=== PATIENT | female | born 1980 | race Caucasian/White ===

== ENCOUNTER 2016-10-07 17:48 | Emergency (ER) | payer OTHER ==
[~2016-10-07] VITALS: Ht 167.6 cm; Wt 111.1 kg
[2016-10-07 19:20] LABS: BASO # 0.1 x10^3/uL (0.0-0.2); BASO % 1 % (0-3); EOS % 1 % (0-3); HEMATOCRIT 39.3 % (36.0-47.0); HEMOGLOBIN 12.8 g/dL (12.0-15.5); LYMPH # 2.9 x10^3/uL (1.0-4.8); LYMPH % 28 % (24-48); MEAN CORPUSCULAR HEMOGLOBIN 28 pg (25-35); MEAN CORPUSCULAR HGB CONC 32 g/dL (31-37); MEAN CORPUSCULAR VOLUME 85 fL (79-100); MONO % 5 % (0-9); NEUT % 65 % (31-73); PLATELET COUNT 251 x10^3/uL (140-400); RED BLOOD COUNT 4.61 x10^6/uL (3.50-5.40); RED CELL DISTRIBUTION WIDTH 16.2 % (11.5-14.5); WHITE BLOOD COUNT 10.2 x10^3/uL (4.0-11.0)
[2016-10-07 19:26] LABS: BILIRUBIN,URINE NEGATIVE (NEG); GLUCOSE,URINE NEGATIVE (NEG); NITRITE,URINE NEGATIVE (NEG); PROTEIN,URINE NEGATIVE (NEG-TRACE); UROBILINOGEN,URINE 0.2 mg/dL (0.2 mg/dL)
[2016-10-07 19:26] LABS: CALCIUM 8.9 mg/dL (8.5-10.1); CREATININE 0.9 mg/dL (0.6-1.0); GFR 71.7; POTASSIUM 4.1 mmol/L (3.5-5.1)
[2016-10-07 19:29] LABS: INR 1.5 (0.8-1.1); PROTHROMBIN TIME PATIENT 16.8 SEC (11.7-14.0)
[2016-10-07 19:32] LABS: ALBUMIN 3.3 g/dL (3.4-5.0); ALBUMIN/GLOBULIN RATIO 0.8 (1.0-1.7); TOTAL BILIRUBIN 0.3 mg/dL (0.2-1.0); TOTAL PROTEIN 7.3 g/dL (6.4-8.2)
[2016-10-07 19:41] LABS: BACTERIA,URINE FEW /HPF (0-FEW); RBC,URINE 0 /HPF (0-2); SQUAMOUS EPITHELIAL CELL,UR MOD /LPF
[2016-10-07 20:13] LABS: NEG OBC UR NEG; POS OBC UR POS
[2016-10-07] MEDS ORDERED: IOHEXOL 350 MG/ML 100ML VIAL. IV ONE (20:15)
--- NOTE | 2016-10-07 20:19 | RAD ---
PROCEDURE Right lower extremity venous duplex ultrasound. HISTORY Right groin pain. Recent shoulder surgery. History of DVT/clotting disorder. TECHNIQUE Grayscale, color flow, and spectral waveform analysis was performed. COMPARISON None. FINDINGS All visualized vein segments are compressible with normal phasicity of waveform and augmentation. No thrombus on grayscale or color imaging is apparent. IMPRESSION Negative for deep vein thrombosis in the right lower extremity. Electronically signed by: Greg Braun MD (Oct 07, 2016 20:18:04)
[2016-10-07 20:22] VITALS: BP 130/83
[2016-10-07] MEDS ORDERED: IOHEXOL 300 MG/ML 75 ML VIAL IV ONE (20:30)
[2016-10-07] MEDS ORDERED: FENTANYL PF 100 MCG/2 ML VIAL. IV PRN (20:30)
[2016-10-07] MEDS ORDERED: CONTRAST GIVEN MC PRN (20:30)
--- NOTE | 2016-10-07 21:29 | RAD ---
PROCEDURE CT angiogram chest. HISTORY Subtherapeutic INR. Recent surgery. History of pulmonary embolism. TECHNIQUE Axial images and coronal and sagittal maximum intensity projection re-formatted images are provided. 75 milliliters of intravenous Omnipaque 300 was administered without complication. One or more of the following individualized dose reduction techniques were utilized for this exam: 1. Automated exposure control. 2. Adjustment of the mA and/or kV according to patient's size. 3. Use of iterative reconstruction technique. COMPARISON February 18, 2007. FINDINGS The contrast bolus is satisfactory. There is no filling defect to suggest pulmonary embolism. There is no aortic aneurysm or dissection. Heart is not enlarged. There is no hilar or mediastinal adenopathy. Central airways are patent. There is no pleural effusion. There is dependent atelectasis. There is no consolidation. There is fatty infiltration of the liver. Gallbladder is absent. There are degenerative changes in the spine. IMPRESSION Negative for pulmonary embolism. Electronically signed by: Greg Braun MD (Oct 07, 2016 21:28:30)
--- NOTE | 2016-10-07 21:50 | ED.ADGEN ---
Past Medical History Past Medical History: DVT, High Cholesterol, Other Additional Past Medical Histor: PE Past Surgical History: Other Additional Past Surgical Histo: L upper arm/scapular area lesions removed Alcohol Use: Occasionally Drug Use: None Adult General Chief Complaint Chief Complaint: LOWER EXT PAIN HPI HPI Patient is a 36 year old woman, history of protein C deficiency, MTHFR mutation , and a who is on chronic anticoagulation, with history of bilateral PEs and DVTs, with a IVC filter that was removed, who presents emergency Department with complaint of right lower extremity pain with concern for recurrent DVT. Patient that she is also feeling short of breath, and anxious. She is a history of anxiety. She states that she was taken off of her Coumadin temporarily for surgical removal of "lesions", that she had on her upper left arm and back at [facility] last week. She states she is currently on Coumadin and Lovenox transitioning back to Lovenox. Patient states that she "may have been weight" on some of her injections, but has been essentially compliant with her regimen. She states that she woke up this morning and was having excruciating pain in her right groin and the back of her leg, now radiating down into her right calf, and is concerned that she is a recurrent DVT. She denies any injuries, denies any nausea or vomiting, denies any focal weakness numbness or tingling, states that she has become more anxious, and is experiencing some shortness of breath as well. Heart rate is in the 80s to low 100s, oxygen saturation is 99% on room air , respiratory rate is unlabored. Review of Systems Review of Systems Constitutional: Denies fever or chills. [] Eyes: Denies change in visual acuity. [] HENT: Denies nasal congestion or sore throat. [] Respiratory: Denies cough, complaining of some shortness of breath and anxiety. ] Cardiovascular: Chest tightness, no edema. GI: Denies abdominal pain, nausea, vomiting, bloody stools or diarrhea. [] : Denies dysuria. [] Musculoskeletal: Denies back pain, pain in the right lower extremity. Integument: Denies rash. [] Neurologic: Denies headache, focal weakness or sensory changes. [] Endocrine: Denies polyuria or polydipsia. [] Lymphatic: Denies swollen glands. [] Psychiatric: Denies depression or anxiety. [] Current Medications Current Medications Current Medications Medications (Trade) Dose Ordered Sig/Toro Start Time Stop Time Status Last Admin Dose Admin Diazepam (Valium) 5 mg 1X ONCE 10/07/16 22:30 10/07/16 22:31 DC Fentanyl Citrate (Fentanyl 2ml Vial) 50 mcg PRN Q15MIN PRN 10/07/16 20:30 10/08/16 20:29 10/07/16 20:38 50 MCG Info (Do NOT chart on this entry -- for MONITORING) 1 each PRN DAILY PRN 10/07/16 20:30 10/09/16 20:29 Iohexol (Omnipaque 300 Mg/ml) 75 ml 1X ONCE 10/07/16 20:30 10/07/16 20:31 DC 10/07/16 20:30 75 ML Iohexol (Omnipaque 350 Mg/ml) 100 ml 1X ONCE 10/07/16 20:15 10/07/16 20:18 DC Allergies Allergies Allergies Coded Allergies Type Severity Reaction Last Updated Verified gadobutrol Allergy Intermediate 10/07/16 Yes nickel Allergy Intermediate "SKIN BREAKDOWN" 10/07/16 Yes Physical Exam Physical Exam Constitutional: Well developed, well nourished, appears anxious, non-toxic appearance. [] HENT: Normocephalic, atraumatic, bilateral external ears normal, oropharynx moist, no oral exudates, nose normal. [] Eyes: PERRLA, EOMI, conjunctiva normal, no discharge. [] Neck: Normal range of motion, no tenderness, supple, no stridor. [] Cardiovascular:Heart rate regular rhythm, no murmur, S1, S2, rubs or gallops. [] Lungs & Thorax: Bilateral breath sounds clear to auscultation, no wheezing, rhonchi, rales. No chest or crepitus or tenderness. [] Abdomen: Bowel sounds normal, obese, soft, no tenderness, no masses, no pulsatile masses. [] Skin: Warm, dry, no erythema, no rash. [] Back: No tenderness, no CVA tenderness. [] Extremities: Pain with motion, 10 tenderness to palpation to entire posterior aspect of the leg on the right, left leg and bilateral upper extremities are normal. Patient has healing incision noted on the left upper extremity status post surgical extraction of she describes as a "lesion". Incision site is clean dry and intact. No cyanosis, no clubbing, ROM intact, no edema. Patient complains of pain to palpation from the posterior right thigh, extending down into the calf. Pulses are equal and intact bilaterally. No sternal signs of trauma. [] Neurologic: Alert and oriented X 3, normal motor function, normal sensory function, no focal deficits noted. [] Psychologic: Affect normal, judgement normal, mood normal. [] Current Patient Data Vital Signs Vital Signs Date Time Temp Pulse Resp B/P Pulse Ox O2 Delivery O2 Flow Rate FiO2 10/07/16 20:38 99 Room Air 10/07/16 20:22 78 15 130/83 10/07/16 18:00 98.2 98.2 Lab Values Laboratory Tests Test 10/07/16 18:12 10/07/16 19:14 White Blood Count 10.2x10^3/uL (4.0-11.0) Red Blood Count 4.61x10^6/uL (3.50-5.40) Hemoglobin 12.8g/dL (12.0-15.5) Hematocrit 39.3% (36.0-47.0) Mean Corpuscular Volume 85fL (79-100) Mean Corpuscular Hemoglobin 28pg (25-35) Mean Corpuscular Hemoglobin Concent 32g/dL (31-37) Red Cell Distribution Width 16.2% (11.5-14.5) H Platelet Count 251x10^3/uL (140-400) Neutrophils (%) (Auto) 65% (31-73) Lymphocytes (%) (Auto) 28% (24-48) Monocytes (%) (Auto) 5% (0-9) Eosinophils (%) (Auto) 1% (0-3) Basophils (%) (Auto) 1% (0-3) Neutrophils # (Auto) 6.6x10^3uL (1.8-7.7) Lymphocytes # (Auto) 2.9x10^3/uL (1.0-4.8) Monocytes # (Auto) 0.5x10^3/uL (0.0-1.1) Eosinophils # (Auto) 0.1x10^3/uL (0.0-0.7) Basophils # (Auto) 0.1x10^3/uL (0.0-0.2) Prothrombin Time 16.8SEC (11.7-14.0) H Prothrombin Time INR 1.5 (0.8-1.1) H PTT 37SEC (24-38) Sodium Level 138mmol/L (136-145) Potassium Level 4.1mmol/L (3.5-5.1) Chloride Level 103mmol/L (98-107) Carbon Dioxide Level 25mmol/L (21-32) Anion Gap 10 (6-14) Blood Urea Nitrogen 14mg/dL (7-20) Creatinine 0.9mg/dL (0.6-1.0) Estimated GFR (Cockcroft-Gault) 71.7 BUN/Creatinine Ratio 16 (6-20) Glucose Level 111mg/dL (70-99) H Calcium Level 8.9mg/dL (8.5-10.1) Total Bilirubin 0.3mg/dL (0.2-1.0) Aspartate Amino Transferase (AST) 11U/L (15-37) L Alanine Aminotransferase (ALT) 25U/L (14-59) Alkaline Phosphatase 83U/L (46-116) Total Protein 7.3g/dL (6.4-8.2) Albumin 3.3g/dL (3.4-5.0) L Albumin/Globulin Ratio 0.8 (1.0-1.7) L Urine Color Yellow Urine Clarity Clear Urine pH 8.0 Urine Specific [place] 1.010 Urine Protein Negativemg/dL (NEG-TRACE) Urine Glucose (UA) Negativemg/dL (NEG) Urine Ketones (Stick) Negativemg/dL (NEG) Urine Blood Negative (NEG) Urine Nitrite Negative (NEG) Urine Bilirubin Negative (NEG) Urine Urobilinogen Dipstick 0.2mg/dL (0.2 mg/dL) Urine Leukocyte Esterase Small (NEG) Urine RBC 0/HPF (0-2) Urine WBC 5-10/HPF (0-4) Urine Squamous Epithelial Cells Mod/LPF Urine Bacteria Few/HPF (0-FEW) Urine Test Negative (NEG) Laboratory Tests 10/07/16 18:12 Laboratory Tests 10/07/16 18:12 EKG EKG EC: Sinus rhythm, heart rate 83 beats minute, upright axis, QTC of 420, IL 154, QRS of 80, no ST elevations or depressions, no evidence of acute ST abnormalities. As interpreted by me. [] Radiology/Procedures Radiology/Procedures [] [facility] [address] [place] [address] IMAGING REPORT Signed PATIENT: CRISTAL RAMIREZ ACCOUNT: [id number] : 1980 LOCATION: ER AGE: 36 SEX: F EXAM STATUS: REG ER ORD. PHYSICIAN: MARJORIE MCCRACKEN DO REASON: Hx PE/subtheraputic INR PROCEDURE: CTA CHEST PROCEDURE CT angiogram chest. HISTORY Subtherapeutic INR. Recent surgery. History of pulmonary embolism. TECHNIQUE Axial images and coronal and sagittal maximum intensity projection re-formatted images are provided. 75 milliliters of intravenous Omnipaque 300 was administered without complication. One or more of the following individualized dose reduction techniques were utilized for this exam: 1. Automated exposure control. 2. Adjustment of the mA and/or kV according to patient's size. 3. Use of iterative reconstruction technique. COMPARISON February 18, 2007. FINDINGS The contrast bolus is satisfactory. There is no filling defect to suggest pulmonary embolism. There is no aortic aneurysm or dissection. Heart is not enlarged. There is no hilar or mediastinal adenopathy. Central airways are patent. There is no pleural effusion. There is dependent atelectasis. There is no consolidation. There is fatty infiltration of the liver. Gallbladder is absent. There are degenerative changes in the spine. IMPRESSION Negative for pulmonary embolism. Electronically signed by: Greg Braun MD (Oct 07, 2016 21:28:30) DICTATED and SIGNED BY: GREG BRAUN MD DATE: 10/07/162127 CC: MARJORIE MCCRACKEN DO; UNKNOWN PCP NAME ~ Impressions: [facility] [address] [place] [address] IMAGING REPORT Signed PATIENT: CRISTAL RAMIREZ ACCOUNT: [id number] : 1980 LOCATION: ER AGE: 36 SEX: F EXAM STATUS: REG ER ORD. PHYSICIAN: MARJORIE MCCRACKEN DO REASON: Pain/hx DVT PROCEDURE: VENOUS LOWER EXTREMITY RIGHT PROCEDURE Right lower extremity venous duplex ultrasound. HISTORY Right groin pain. Recent shoulder surgery. History of DVT/clotting disorder. TECHNIQUE Grayscale, color flow, and spectral waveform analysis was performed. COMPARISON None. FINDINGS All visualized vein segments are compressible with normal phasicity of waveform and augmentation. No thrombus on grayscale or color imaging is apparent. IMPRESSION Negative for deep vein thrombosis in the right lower extremity. Electronically signed by: Greg Braun MD (Oct 07, 2016 20:18:04) DICTATED and SIGNED BY: GREG BRAUN MD DATE: 10/07/162016 CC: MARJORIE MCCRACKEN DO; UNKNOWN PCP NAME ~ Course & Med Decision Making Course & Med Decision Making Pertinent Labs and Imaging studies reviewed. (See chart for details) Patient very anxious, concerned that she has recurrent DVT and PE. Has had both previously, and states that she "may have been a little late", upon giving herself Lovenox doses, is currently being transitioned from Lovenox to Coumadin. Agreeable for evaluation in the emergency department, including ultrasound of lower extremity, and CT of the chest to rule out PE. Laboratory studies not reveal any acutely concerning finding, although patient was noted to have a subtherapeutic INR at 1.5, this is consistent with her report of starting the Coumadin on Monday, she is scheduled for an INR check on Monday. She states she does have her Lovenox at home and did take it today already. Ultrasound is negative for DVT, PE study also negative. On reevaluation, patient states that she is very relieved by this information. Again palpating the area pain, denied identified any external signs of concern. Discussed with patient that this is consistent with musculoskeletal pain, she is able to weight -bear, although she does have some pain. Ambulating without difficulty in the emergency department. Discussed use of muscle relaxing medications, heat, activity, patient to follow-up with her primary care provider on Monday as scheduled, for additional evaluation as needed, and to return to the ED for concerning symptoms as discussed. Patient discharged home in stable condition with prescription for cyclobenzaprine, with her mother, and plan as above. [place] Disclaimer Dragon Disclaimer This electronic medical record was generated, in whole or in part, using a voice recognition dictation system. Departure Impression: Primary Impression: Leg pain, right Disposition: HOME, SELF-CARE Condition: IMPROVED Scripts Cyclobenzaprine Hcl 10 Mg [id number] Mg PO TID PRN MUSCLE PAIN #12 TAB Prov:MARJORIE MCCRACKEN DO 10/07/16 MARJORIE MCCRACKEN DO Oct 07, 2016 21:50
[2016-10-07] MEDS ORDERED: CYCL10TA2 PO (22:25)
[2016-10-07] MEDS ORDERED: DIAZEPAM 5 MG TABLET PO ONE (22:30)
--- NOTE | 2016-10-08 01:14 | EKG ---
[facility] [address] [place] [address] Test Date: 2016-10-07 Test Time: 19:21:36 Pat Name: CRISTAL RAMIREZ Department: Room: Gender: F Athletic Instructor: : 1980 Requested By: MARJORIE MCCRACKEN Order Number: [id number] Reading MD: Measurements Intervals [place] Rate: 83 P: 38 FL: 154 QRS: 10 QRSD: 80 T: 10 QT: 364 QTc: 428 Interpretive Statements SINUS RHYTHM QRS(T) CONTOUR ABNORMALITY CONSIDER ANTEROLATERAL MYOCARDIAL DAMAGE RI6.01 No previous ECG available for comparison
== END 2016-10-07 22:50 | disposition home or self-care (01) ==
LOC: ER 17:48
DX: M79.604 Pain in right leg (principal); E78.00 Pure hypercholesterolemia, unspecified; F41.9 Anxiety disorder, unspecified; E66.9 Obesity, unspecified; Z79.01 Long term (current) use of anticoagulants; Z86.711 Personal history of pulmonary embolism; Z86.718 Personal history of other venous thrombosis and embolism; Z68.39 Body mass index [BMI] 39.0-39.9, adult; Z88.8 Allergy status to other drugs, medicaments and biological substances; Z91.048 Other nonmedicinal substance allergy status; Z95.828 Presence of other vascular implants and grafts
CPT/HCPCS: 36415; 71275; 80053; 81001; 81025; 85027; 85610; 85730; 87086; 93005; 93971; 96374; 99285; J3010; Q9967